=== PATIENT | male | born 1995 | race Caucasian/White ===

== ENCOUNTER 2024-05-07 11:03 | Day surgery (SDC) | payer BC ==
[~2024-05-07] VITALS: Ht 170.2 cm; Wt 86.8 kg
[~2024-05-07 11:03] MED LIST: LR 1,000 ML IV SCH; Ondansetron 4 MG/2 ML VIAL IV PRN
[2024-05-07] MEDS ORDERED: PRILOTC (11:12)
[2024-05-07 11:13] VITALS: BP 119/66; PULSE 73; TEMP 98.1
[2024-05-07] MEDS ORDERED: Lidocaine PF 2% (20 MG/ML) 5 ML VIAL ONE (11:49)
[2024-05-07 12:50] VITALS: BP 118/71; PULSE 61
[2024-05-07 13:05] VITALS: BP 113/71; PULSE 64
[2024-05-07 13:20] VITALS: BP 119/60; PULSE 63
--- NOTE | 2024-05-07 16:02 | NUR ---
1250 PATIENT RETUR[place] [facility] [place]. PT AWAKE AND ALERT. RESPIRATIONS UNLABORED. AMBULATED TO RECLINER CHAIR WITH 2:1 SBA. PT DENIES NAUSEA OR ABDOMINAL PAIN. HOOKED UP TO MONITOR AND VS OBTAINED. CALL LIGHT AT SIDE AND PRESENT. 1255 PATIENT TOLERATING COFFEE AND MUFFIN WITHOUT NAUSEA OR DIFFICULTY SWALLOWING. 1305 IN ROOM SPEAKING WITH PATIENT. 1315 D/C INSTRUCTIONS REVIEWED WITH PATIENT. PT VERBALIZED UNDERSTANDING AND A COPY OF INSTRUCTIONS PROVIDED IN D/C FOLDER. 1330 PATIENT DRESSES SELF. 1345 PATIENT DISCHARGED FROM UNIT VIA W/C TO A PERSONAL VEHICLE. PT LEFT HOSPITAL IN STABLE CONDITION.
== END 2024-05-07 13:45 | disposition home or self-care (01) ==
LOC: SDCO 11:03
DX: K29.30 Chronic superficial gastritis without bleeding (principal); F17.290 Nicotine dependence, other tobacco product, uncomplicated; F17.220 Nicotine dependence, chewing tobacco, uncomplicated; K21.9 Gastro-esophageal reflux disease without esophagitis
CPT/HCPCS: J2704; J7120